=== PATIENT | female | born 1980 | race Caucasian/White ===

== ENCOUNTER → 2018-01-09 | Outpatient (CLI) | payer BC ==
[~2018-01-09] MED LIST: BUSPAR5 MG; PRENATAL1 TA1; TIROSINT100 MCG
== END ==
LOC: COL.RAD 07:57
DX: R10.11 Right upper quadrant pain (principal)

== ENCOUNTER → 2019-04-23 | Outpatient (CLI) | payer BC | LOC: COL.CARD 07:50 | DX: R00.2 Palpitations (principal) ==

== ENCOUNTER → 2021-03-20 | Outpatient (CLI) | payer BC | LOC: ZCOL.LAB 17:01 | DX: Z20.822 Contact with and (suspected) exposure to COVID-19 (principal) ==

== ENCOUNTER → 2021-07-24 | Outpatient (CLI) | payer BC | LOC: MC.RAD 07:33 | DX: Z12.31 Encounter for screening mammogram for malignant neoplasm of breast (principal) ==

== ENCOUNTER → 2023-07-10 | Outpatient (CLI) | payer BC | LOC: COL.RAD 12:52 | DX: S09.90XD Unspecified injury of head, subsequent encounter (principal) ==